=== PATIENT | male | born 1995 | race African-American/Black ===

== ENCOUNTER 2021-03-14 10:37 | Emergency (ER) | payer MEDICAID ==
[~2021-03-14] VITALS: Ht 167.6 cm; Wt 68.0 kg
[~2021-03-14 10:37] MED LIST: IBUP-2029 MT
[2021-03-14 10:49] VITALS: BP 122/62
[2021-03-14] MEDS ORDERED: KETOROLAC 60MG/2ML VIAL IM ONE (11:00)
[2021-03-14] MEDS ORDERED: IBUP-2029 MT (11:46)
== END 2021-03-14 12:22 | disposition home or self-care (01) ==
LOC: ER 10:37
DX: M79.671 Pain in right foot (principal)
CPT/HCPCS: 73630; 96372; 99283; J1885

== ENCOUNTER 2022-08-04 21:03 | Emergency (ER) | payer MEDICAID ==
[~2022-08-04] VITALS: Ht 167.6 cm; Wt 59.1 kg
[2022-08-05] MEDS ORDERED: IBUP-2028 MT (00:16)
[2022-08-05 00:29] VITALS: BP 121/84
== END 2022-08-05 00:30 | disposition home or self-care (01) ==
LOC: ER 21:03
DX: H92.01 Otalgia, right ear (principal)
CPT/HCPCS: 99282